=== PATIENT | male | born 1970 | race Caucasian/White ===

== ENCOUNTER 2022-04-02 09:47 | Emergency (ER) | payer OTHER ==
[~2022-04-02] VITALS: Ht 180.3 cm; Wt 63.5 kg
[2022-04-02] MEDS ORDERED: LEVEMIR100 UNIT/1 SUB-Q (10:27)
[2022-04-02] MEDS ORDERED: NOVOLOG100 UNIT/2 SQ (10:27)
== END 2022-04-02 13:04 | disposition home or self-care (01) ==
LOC: ED 09:47
DX: E11.649 Type 2 diabetes mellitus with hypoglycemia without coma (principal); T38.3X5A Adverse effect of insulin and oral hypoglycemic [antidiabetic] drugs, initial encounter; Y92.9 Unspecified place or not applicable; Z79.4 Long term (current) use of insulin
CPT/HCPCS: 36415; 80048; 85025; 96374; 96375; 99284-25; J1200; J1790; J2405